=== PATIENT | male | born 1995 | race Caucasian/White ===

== ENCOUNTER 2023-04-28 10:29 | Outpatient (CLI) | payer OTHER, SELFPAY | END 2023-04-28 10:30 | disposition home or self-care (01) | PROVIDERS: PCP Physician Assistant Medical; Visit Provider Physician Assistant Medical | DX: Z00.00 Encounter for general adult medical examination without abnormal findings (principal); Z11.3 Encounter for screening for infections with a predominantly sexual mode of transmission | CPT/HCPCS: 80053; 80061; 86592; 86703; 86706; 86803; 87340; 87491; 87591 ==

== ENCOUNTER 2023-09-14 08:42 | Outpatient (CLI) | payer OTHER, SELFPAY | END 2023-09-14 08:43 | disposition home or self-care (01) | LOC: NFLDREF 09-15 06:08 | PROVIDERS: PCP Physician Assistant Medical; Referring Provider Physician Assistant Medical; Visit Provider Physician Assistant Medical | DX: R53.83 Other fatigue (principal); R79.89 Other specified abnormal findings of blood chemistry; G89.29 Other chronic pain; M54.50 Low back pain, unspecified | CPT/HCPCS: 82306; 82607; 82728; 84403; 84443; 86200; 86431; 86812 ==

== ENCOUNTER 2024-01-19 13:35 | Outpatient (CLI) | payer BC, SELFPAY | END 2024-01-19 13:36 | disposition home or self-care (01) | LOC: NFLDREF 01-20 06:55 | PROVIDERS: PCP Physician Assistant Medical; Referring Provider Physician Assistant Medical; Visit Provider Physician Assistant Medical | DX: Z11.3 Encounter for screening for infections with a predominantly sexual mode of transmission (principal) | CPT/HCPCS: 86592; 86703; 86706; 86803; 87340; 87491; 87591 ==

== ENCOUNTER 2025-05-27 15:43 | Outpatient (CLI) | payer BC, SELFPAY | END 2025-05-27 15:44 | disposition home or self-care (01) | PROVIDERS: PCP Physician Assistant Medical; Referring Provider Physician Assistant Medical; Visit Provider Physician Assistant Medical | DX: Z11.3 Encounter for screening for infections with a predominantly sexual mode of transmission (principal); Z11.4 Encounter for screening for human immunodeficiency virus [HIV]; Z11.59 Encounter for screening for other viral diseases | CPT/HCPCS: 86592; 86703; 86706; 86803; 87340; 87491; 87591 ==

== ENCOUNTER 2025-08-30 12:40 | Outpatient (CLI) | payer BC, SELFPAY | END 2025-08-30 12:41 | disposition home or self-care (01) | LOC: NFLDREF 08-31 20:38 | PROVIDERS: PCP Physician Assistant Medical; Referring Provider Physician Assistant Medical; Visit Provider Physician Assistant | DX: Z71.1 Person with feared health complaint in whom no diagnosis is made (principal) | CPT/HCPCS: 87491; 87591 ==